=== PATIENT | female | born 1960 | race African-American/Black ===

== ENCOUNTER → 2019-02-26 | Outpatient (CLI) | payer OTHER ==
[~2019-02-26] MED LIST: PERFLUTREN PROTEIN-A MICROSPHR 0.22 MG/ML 3 ML VIAL. IV ONE
--- NOTE | 2019-02-26 12:57 | PCVCIMAG ---
APPROVED REPORT Study performed: 02/26/2019 10:44:45 EXAM: Comprehensive 2D, Doppler, and color-flow Echocardiogram Patient Location: Echo lab Status: routine BSA: 2.27 HR: 81 bpmBP: 150/88 mmHg Rhythm: NSR Other Information Study Quality: Technically Limited Echo Enhancing Agent Indication: Endocardial border delineation Agent(s) / Amount(s) Used: Optison 5 cc 2D Dimensions IVSd: 13.25 (7-11mm) LVDd: 51.74 mm PWd: 13.25 (7-11mm)Ascending Ao: 37.73 (22-36mm) LVDs: 46.83 (25-40mm) Left Atrium: 48.44 (27-40mm) Aortic Root: 34.64 mm Volumes Left Atrial Volume (Systole) Single Plane 4CH: 82.81 mLSingle Plane 2CH: 59.25 mL LA ESV Index: 32.00 mL/m2 Aortic Valve AoV Peak Sean.: 1.46 m/s AO Peak Gr.: 8.74 mmHgLVOT Max P.45 mmHg LVOT Max V: 0.93 m/s Mitral Valve E/A Ratio: 0.9 MV Decel. Time: 279.51 ms MV E Max Sean.: 0.46 m/s MV A Sean.: 0.54 m/s IVRT: 169.55 ms Pulmonary Valve PV Peak Sean.: 1.02 m/sPV Peak Gr.: 4.17 mmHg Pulmonary Vein P Vein S: 0.20 m/sP Vein A: 0.28 m/s P Vein D: 0.32 m/sP Vein A Dur.: 138.4 msec P Vein S/D Ratio: 0.63 Tricuspid Valve TR Peak Sean.: 2.44 m/s TR Peak Gr.: 23.83 mmHg Left Ventricle The left ventricle is normal size. There is global hypokinesis of the left ventricle. Mild concentric left ventricular hypertrophy. Left ventricular systolic function is moderately decreased. LVEF 40%. Mild diastolic dysfunction is present (impaired relaxation pattern). Right Ventricle The right ventricle is normal size. The right ventricular systolic function is normal. Atria Left atrium is mildly dilated. The right atrium size is normal. Aortic Valve Mild aortic valve sclerosis. No aortic regurgitation is present. There is no aortic valvular stenosis. Mitral Valve The mitral valve is normal in structure. Mild mitral regurgitation. No evidence of mitral valve stenosis. Tricuspid Valve The tricuspid valve is normal in structure. Mild tricuspid regurgitation with PAP of 30 mmHg. Pulmonic Valve The pulmonary valve is normal in structure. There is no pulmonic valvular regurgitation. Great Vessels The aortic root is normal in size. The ascending aorta is borderline dilated to 3.8 cm. IVC is normal in size and collapses >50% with inspiration. Pericardium There is no pericardial effusion. There is no pleural effusion. <Conclusion> Left ventricular systolic function is moderately decreased. There is global hypokinesis of the left ventricle. Mild concentric left ventricular hypertrophy. LVEF 40%. Mild diastolic dysfunction Mild aortic valve sclerosis. No aortic regurgitation or stenosis. The mitral valve is normal in structure. Mild mitral regurgitation. Mild tricuspid regurgitation with pulmonary artery pressure of 30 mmHg. There is no pericardial effusion.
== END | disposition home or self-care (01) ==
LOC: PCVCIMAG 10:47
PROVIDERS: ATTEND Internal Medicine
DX: I08.3 Combined rheumatic disorders of mitral, aortic and tricuspid valves (principal); I11.0 Hypertensive heart disease with heart failure; I50.42 Chronic combined systolic (congestive) and diastolic (congestive) heart failure; I42.8 Other cardiomyopathies; E78.5 Hyperlipidemia, unspecified; J45.909 Unspecified asthma, uncomplicated; G47.33 Obstructive sleep apnea (adult) (pediatric); F17.200 Nicotine dependence, unspecified, uncomplicated; Z79.899 Other long term (current) drug therapy
CPT/HCPCS: C8929; Q9956